=== PATIENT | male | born 1950 | race Caucasian/White ===

== ENCOUNTER → 2023-12-14 08:06 | Outpatient (REF) | payer MEDICARE, OTHER, SELFPAY | LOC: DHCBS MAIN 08:06 | PROVIDERS: ATTENDING PHYSICIAN Internal Medicine Cardiovascular Disease; FAMILY PHYSICIAN Nurse Practitioner Adult Health | DX: Z98.890 Other specified postprocedural states (principal) | CPT/HCPCS: 93306 ==

== ENCOUNTER → 2023-12-15 12:05 | Outpatient (REF) | payer MEDICARE, OTHER, SELFPAY | LOC: RAD 12:05 | PROVIDERS: ATTENDING PHYSICIAN Nurse Practitioner Adult Health | DX: M79.672 Pain in left foot (principal) | CPT/HCPCS: 73600; 73620 ==

== ENCOUNTER → 2024-01-29 19:59 | Outpatient (REF) | payer MEDICARE, OTHER, SELFPAY | LOC: MRI 19:59 | PROVIDERS: ATTENDING PHYSICIAN Podiatrist Primary Podiatric Medicine | DX: M25.572 Pain in left ankle and joints of left foot (principal); M76.62 Achilles tendinitis, left leg | CPT/HCPCS: 73723 ==

== ENCOUNTER 2024-01-30 18:01 | Outpatient (RCR) | payer MEDICARE, OTHER, SELFPAY | END 2024-01-30 23:59 | disposition home or self-care (01) | LOC: RPT 18:01 | PROVIDERS: ATTENDING PHYSICIAN Nurse Practitioner Adult Health | DX: M79.672 Pain in left foot (principal); M25.572 Pain in left ankle and joints of left foot; R26.2 Difficulty in walking, not elsewhere classified; Z73.6 Limitation of activities due to disability | CPT/HCPCS: 97110; 97140; 97161 ==

== ENCOUNTER → 2024-07-25 17:31 | Outpatient (REF) | payer MEDICARE, OTHER, SELFPAY | LOC: MRI 3T 17:31 | PROVIDERS: ATTENDING PHYSICIAN Specialist; FAMILY PHYSICIAN Nurse Practitioner Adult Health | DX: R97.20 Elevated prostate specific antigen [PSA] (principal) | CPT/HCPCS: 72197; A9575 ==

== ENCOUNTER → 2024-09-25 16:33 | Outpatient (REF) | payer MEDICARE, OTHER, SELFPAY | LOC: CLAB 16:33 | PROVIDERS: ATTENDING PHYSICIAN Specialist | DX: R97.20 Elevated prostate specific antigen [PSA] (principal) | CPT/HCPCS: 88305 ==

== ENCOUNTER 2025-04-14 00:01 | Emergency (ER) | payer MEDICARE, OTHER, SELFPAY ==
[2025-04-14 00:05] VITALS: BP 168/72
--- NOTE | 2025-04-14 01:08 | ED.GENMED ---
History of Present Illness
<Nilda REBECA Null - Last Filed: 04/14/25 05:18>
General
Chief Complaint: Abdominal Pain
Source: patient and spouse
Time Seen by Provider: 04/14/25 00:46
History of Present Illness
History of Present Illness:
Patient is a 74 y/o M with PMHx of afib, HTN, KENDELL, and mitral valve repair presents to ED with abdominal pain x 4 days. Pain is located in RLQ, LLQ without radiation, rated 6/10. Patient has not had a bowel movement in 3-4 days but did have
flatulence, which has ceased in the last day. Patient took Colace a few hours before arriving at ED in hopes to relieve constipation like symptoms. Patient has been able to continue to eat despite persistent nausea due to abominal pain.
Review of Systems
<REBECA Parra - Last Filed: 04/14/25 05:18>
Review of Systems
Allergies reviewed?: Yes
Other source history: family
Constitutional: Denies fever, fatigue or chills
Respiratory: Denies hemoptysis or trouble breathing
Cardiac: Denies chest pain or palpitations
ABD/GI: Reports abdominal pain, nausea and constipated; Denies vomiting, diarrhea or bloody stools
: Denies dysuria, frequency, difficulty voiding, urgency, bleeding or discharge
Musculoskeletal: Denies joint pain or muscle pain
Neurological: Denies dizzy, headache or weakness
Endocrine: Denies polyuria or polydipsia
Phy Exam
<REBECA Parra - Last Filed: 04/14/25 05:18>
General Physical Exam
General Presentation: well appearing
General age: appears stated age
General Skin: warm and dry
General Habitus: normal
General Mental: alert
General Hydration: appears well hydrated
Cardiovascular Exam
Cardiovascular Exam: regular rate/rhythm, no edema and no murmur
Heart Sounds: normal
Pulmonary Exam
Pulmonary Exam: lungs clear
Gastrointestinal Exam
Gastrointestinal Exam: no cva tenderness, abnormal bowel sounds, distended and no masses
Palpation: left upper quadrant: No tenderness, left lower quadrant: Moderate tenderness, right upper quadrant: No tenderness and right lower quadrant: Mild tenderness
Auscultation of Abdomen: absent
<Tima Clarke DO - Last Filed: 04/14/25 04:47>
Physical Exam
Physical Exam:
.
Course
<ST AidaPA - Last Filed: 04/14/25 05:18>
Orders/Labs/Results
Orders:
Orders
04/14/25 01:43
Complete Blood Count/With Diff Urgent
Comprehensive Metabolic Panel Urgent
Urinalysis Urgent
Date Specimen was Collected: 04/14/25
Time Specimen was Collected: 01:26
Urine Microscopic Urgent
Date Specimen was Collected: 04/14/25
Time Specimen was Collected: 01:26
04/14/25 02:13
CT Abd/pelvis W Iv Cont Urgent
Comment:
Reason For Exam: L sided and lower abd pain
04/14/25 03:27
0.9% Sodium Chloride 1000 ml [Nss] 1,000 ml IV BOLUS
Morphine Sulfate 4 mg IV NOW STA
Ondansetron Injectable [Zofran] 4 mg IV NOW STA
04/14/25 03:58
Ketorolac [Toradol] 15 mg IV NOW STA
04/14/25 04:02
HYDROmorphone [Dilaudid] 1 mg IV NOW STA
Abnormal Lab Results
04/14/25
01:43
RBC 4.57 L 10^6/uL
(4.70-6.10)
MCH 32.2 H pg
(27.0-31.0)
MPV 10.7 H fL
(7.4-10.4)
Absolute Neuts (auto) 8.5 H 10^3/uL
(1.4-6.5)
Absolute Lymphs (auto) 0.8 L 10^3/uL
(1.2-3.4)
Absolute Monos (auto) 1.0 H 10^3/uL
(0.1-0.6)
Neutrophils % 81.4 H %
(42.2-75.2)
Lymphocytes % 7.4 L %
(20.5-51.1)
Monocytes % 9.5 H %
(1.7-9.3)
Potassium 3.4 L mmol/L
(3.5-5.1)
BUN 31 H mg/dl
(9-20)
Creatinine 1.6 H mg/dL
(0.7-1.3)
Glucose 146 H mg/dl
(70-99)
Urine Ketones 1+ A
(Negative)
Urine Occult Blood 3+ A
(Negative)
Urine RBC 3-6 A /HPF
(0-2)
Urine Bacteria Few A
(Negative)
04/14/25 01:43
04/14/25 01:43
Vital Signs
Initial and Last Documented VS:
Initial Vital Signs
Temp Pulse Resp BP Pulse Ox
98.4 F 60 20 168/72 97
04/14/25 00:05 04/14/25 00:05 04/14/25 00:05 04/14/25 00:05 04/14/25 00:05
Last Documented Vital Signs
Temp Pulse Resp BP Pulse Ox
98.4 F 69 18 151/65 94
04/14/25 00:05 04/14/25 04:55 04/14/25 04:55 04/14/25 03:08 04/14/25 04:55
<Tima Clarke, DO - Last Filed: 04/14/25 04:47>
Orders/Labs/Results
Orders:
Orders
04/14/25 01:43
Complete Blood Count/With Diff Urgent
Comprehensive Metabolic Panel Urgent
Urinalysis Urgent
Date Specimen was Collected: 04/14/25
Time Specimen was Collected: :
Urine Microscopic Urgent
Date Specimen was Collected: 04/14/25
Time Specimen was Collected: :
04/14/25 02:13
CT Abd/pelvis W Iv Cont Urgent
Comment:
Reason For Exam: L sided and lower abd pain
04/14/25 03:27
0.9% Sodium Chloride 1000 ml [Nss] 1,000 ml IV BOLUS
Morphine Sulfate 4 mg IV NOW STA
Ondansetron Injectable [Zofran] 4 mg IV NOW STA
04/14/25 03:58
Ketorolac [Toradol] 15 mg IV NOW STA
04/14/25 04:02
HYDROmorphone [Dilaudid] 1 mg IV NOW STA
Abnormal Lab Results
04/14/25
01:43
RBC 4.57 L 10^6/uL
(4.70-6.10)
MCH 32.2 H pg
(27.0-31.0)
MPV 10.7 H fL
(7.4-10.4)
Absolute Neuts (auto) 8.5 H 10^3/uL
(1.4-6.5)
Absolute Lymphs (auto) 0.8 L 10^3/uL
(1.2-3.4)
Absolute Monos (auto) 1.0 H 10^3/uL
(0.1-0.6)
Neutrophils % 81.4 H %
(42.2-75.2)
Lymphocytes % 7.4 L %
(20.5-51.1)
Monocytes % 9.5 H %
(1.7-9.3)
Potassium 3.4 L mmol/L
(3.5-5.1)
BUN 31 H mg/dl
(9-20)
Creatinine 1.6 H mg/dL
(0.7-1.3)
Glucose 146 H mg/dl
(70-99)
Urine Ketones 1+ A
(Negative)
Urine Occult Blood 3+ A
(Negative)
Urine RBC 3-6 A /HPF
(0-2)
Urine Bacteria Few A
(Negative)
04/14/25 01:43
04/14/25 01:43
Vital Signs
Initial and Last Documented VS:
Initial Vital Signs
Temp Pulse Resp BP Pulse Ox
98.4 F 60 20 168/72 97
04/14/25 00:05 04/14/25 00:05 04/14/25 00:05 04/14/25 00:05 04/14/25 00:05
Last Documented Vital Signs
Temp Pulse Resp BP Pulse Ox
98.4 F 69 18 151/65 94
04/14/25 00:05 04/14/25 04:55 04/14/25 04:55 04/14/25 03:08 04/14/25 04:55
<REBECA Parra - Last Filed: 04/14/25 05:18>
MDM/Problems Addressed
Differential Diagnosis Includes:
Differential diagnosis includes but is not limited to
-Diverticulitis
-Small bowel obstruction
-constipation
-colitis
-renal colic
-nephrolithiasis
-urinary tract infection
MDM/Problems Addressed:
1. Abdominal pain x 4 days
-CBC, CMP, UA, Abdominal CT
<Nilda Hansen, STPA - Last Filed: 04/14/25 05:18>
*Pulse Oximetry
SaO2: 97
Patient hypoxic: no
*Critical Care Note
Total Time (30-74mins, 75-104mins- exclusive of procedures): Not Applicable
<Tima Clarke DO - Last Filed: 04/14/25 04:47>
*Pulse Oximetry
Oxygen Mode of Delivery: Room air
Patient hypoxic: no
*Critical Care Note
Total Time (30-74mins, 75-104mins- exclusive of procedures): Not Applicable
<Tima Clarke DO - Last Filed: 04/14/25 04:47>
Update Note
Update Note:
Note:
CHIEF COMPLAINT(S)
Abdominal pain for three days with associated nausea and feeling of bloating.
HISTORY OF PRESENT ILLNESS
The patient is a 74-year-old male presenting with abdominal pain that began approximately three days ago. Initially, the pain was localized to the right side, but subsequently, it has become more centralized around the umbilical region. The patient
describes the pain as extensive and significant. Concurrently, the patient reports nausea, but denies any fever, vomiting, or blood in the stool. There is an absence of previous similar episodes, except for a history of kidney stones with
unrecallable pain localization. No recent surgeries have been conducted on the abdomen. Pain is exacerbated by palpation, particularly in the left upper and lower quadrants. The patient reports a lack of bowel movement and flatulence.
PAST MEDICAL AND SURGICAL HISTORY
History of kidney stones several years ago.
ADDITIONAL HISTORY OBTAINED FROM SOURCES OTHER THAN THE PATIENT
According to EMS, upon examination, the patients abdomen is distended and tympanic on percussion. The examination revealed mild tenderness in the left upper and lower quadrants. The remainder of the physical examination was unremarkable, with
regular heart rhythm and no abnormalities detected.
SOCIAL DETERMINANTS AFFECTING HEALTH
The patient has no reported allergies to medications.
MEDICATIONS
Not mentioned.
REVIEW OF SYSTEMS
- Gastrointestinal: Nausea, abdominal pain, feeling of bloating, and tenderness on palpation. No vomiting, diarrhea, or blood in the stool reported. No recent flatulence or bowel movements.
PHYSICAL EXAM
- General: Alert, no acute distress.
- Abdomen: Mild tenderness in the left upper and left lower quadrants, distended abdomen, tympanic on percussion.
- All other systems including Skin, Head, Eye, Ears, Nose, Mouth, Throat, Cardiovascular, Respiratory, Back, Musculoskeletal, Neurological, and Psychiatric appeared normal or unremarkable during the exam.
PROBLEM LIST
- Acute: Abdominal pain with associated nausea and distention.
- Chronic: History of kidney stones.
PLAN
The patient will undergo abdominal imaging to rule out colitis, bowel obstruction, or other acute abdominal conditions. Laboratory tests will be conducted to evaluate liver and kidney function and blood counts. Given the potential for constipation,
a targeted bowel management plan will be determined based on imaging findings. Pain management will be considered using non-narcotic options to avoid exacerbating constipating symptoms.
DIFFERENTIAL DIAGNOSIS
The Differential Diagnosis includes, in no particular order and is not limited to:
1. Constipation
2. Bowel obstruction
3. Colitis
4. Diverticulitis
5. Renal colic (due to history of kidney stones)
6. Gastroenteritis
7. Mesenteric ischemia
8. Pancreatitis
9. Aortic aneurysm
10. Inflammatory bowel disease
CARE-UPDATE
04/14/25 - 04:03
- CT scan shows a 6-millimeter stone.
- Patient continues to experience persistent pain.
- Decided to hold off on Toradol due to current use of Eliquis and renal insufficiency.
- PRN medication adjustment or additional analgesia may be considered in light of the persistent pain.
Disposition:
SUMMARY OF ENCOUNTER
The patient, a 74-year-old male, presented to the emergency department with a three-day history of abdominal pain, nausea, and bloating. Initial pain was localized to the right side but became centralized around the umbilical region. The examination
showed a distended abdomen with mild tenderness in the left upper and lower quadrants. The patient had no fever, vomiting, or blood in the stool. Lab results revealed mild hypokalemia and mild renal insufficiency. Liver function tests were normal,
and urinalysis showed blood but no evidence of urinary tract infection. Imaging demonstrated a 6-millimeter kidney stone, contributing to the diagnosis of renal colic. Pain management was considered with non-steroidal anti-inflammatory drugs, but
Toradol was withheld due to the patients use of anticoagulant Eliquis and renal insufficiency.
DISPOSITION
Patient stable for discharge, to follow up with urology as an outpatient.
ASSESSMENT
The patients symptoms and imaging are consistent with renal colic secondary to the presence of a 6-millimeter kidney stone. Additionally, there are findings of mild hypokalemia and mild renal insufficiency.
PLAN
The patient will be discharged with prescriptions for narcotic pain medication and tamsulosin (Flomax) for symptomatic treatment of renal colic. The patient is advised to follow up with a urologist as an outpatient for further management of the
kidney stones.
INDEPENDENT REVIEW OF LABS AND INTERPRETATION OF TESTS
My independent review of CBC indicates normal white blood cell count, normal hemoglobin, and normal platelet count.
My independent review of BMP indicates mild hypokalemia at 3.4 mmol/L and mild renal insufficiency with a creatinine level of 1.6 mg/dL, unspecified baseline.
My independent review of liver function tests shows normal results.
My independent review of urinalysis shows the presence of blood but no evidence of a urinary tract infection.
MEDICATION RECONCILIATION
Prescriptions provided for narcotic pain medication and tamsulosin (Flomax) for management of symptoms related to renal colic.
MEDICAL DECISION MAKING
Chronic conditions affecting care include a history of kidney stones. Differential diagnosis included constipation, bowel obstruction, colitis, diverticulitis, renal colic, gastroenteritis, mesenteric ischemia, pancreatitis, aortic aneurysm, and
inflammatory bowel disease.
-Data:
Category 1
Tests and documents: CBC, BMP, liver function tests, urinalysis reviewed.
Category 2
Clinical information was obtained from an independent historian: Information from EMS.
-Risk:
Consideration of Admission/Observation: Escalation of care including admission/observation was considered given the complexity and risk of the patients presenting complaint, exam findings, and/or their underlying comorbidities. However, ultimately I
feel the patient is safe for outpatient management with close follow-up. Reasoning: Work-up is reassuring, does not reveal any acute life/organ threatening processes, patients symptoms well-controlled upon reevaluation, reexamination is reassuring,
vitals are stable, patient agreeable with discharge, reliable for follow-up.
DIAGNOSIS
Renal colic (N20.0)
Creatinine (1.6 mg/dL) abnormality (R94.4)
Hypokalemia (E87.6)
ED Attending Note
<REBECA Parra - Last Filed: 04/14/25 05:18>
-
Portions of this chart may have been created with voice recognition software.� Occasional wrong word or��sound alike� substitutions may have occurred due to the inherent limitations of voice recognition software.
Discharge Plan
Departure
Patient with high blood pressure during this ER visit?: Yes
Discharge Problem:
Nephrolithiasis
Instructions: Kidney Stones (DC), BLOOD PRESSURE
Prescriptions:
New
tamsulosin [Flomax] 0.4 mg capsule
0.4 mg PO HS Qty: 20 0RF
hydrocodone-acetaminophen 5-325 mg tablet
2 tab PO Q6H PRN (Reason: Pain) Qty: 14 0RF
No Action
multivitamin Tablet
1 tab PO DAILY
atorvastatin 10 mg Tablet
10 mg PO DAILY
potassium 99 mg Tablet
99 mg PO DAILY
hydrochlorothiazide 25 mg Tablet
25 mg PO DAILY
lisinopril 40 mg Tablet
40 mg PO DAILY
acetaminophen [Tylenol Extra Strength] 500 mg Capsule
500 mg PO PRN PRN (Reason: pain)
Patient Comments:
weeks since last dose
Eliquis 5 mg Tablet
5 mg PO BID
Referrals:
Adán Watson MD [Active, Urology]
UNKNOWN - PT DOES,NOT KNOW [Family Provider]
Activity Restrictions/Additional Instructions:
Please drink plenty of fluids and rest. Use pain control as needed and do not operate machinery or drive vehicles while on narcotic pain medications. Please see urology in the next 3 to 5 days for follow-up and reevaluation. Return immediately
for fevers, intractable pain, tractable vomiting or any other concerns.
Interventions
Interventions:
*Risk Screen - Suicide Last Done: 04/14/25 00:05
*General Assessment Last Done: 04/14/25 01:39
*Neglect/Abuse Screening Last Done: 04/14/25 00:05
*ED- Fall Risk Assessment Last Done: 04/14/25 01:39
*ED COVID-19 Vaccine History Last Done: 04/14/25 01:39
YP-Csphbg-Xqakxwoxlp Assessment Last Done: 04/14/25 01:52
Discharge Date and Time
Print Language: THAI
[2025-04-14 01:55] LABS: Urine Character Clear (Clear)
[2025-04-14 01:56] LABS: Hematocrit 41.5 % (39.0-52.0); Hemoglobin 14.7 g/dL (13.0-18.0); Mean Corp Hgb Conc. 35.4 g/dL (33.0-37.0); Mean Corpuscular Volume 90.8 fL (80.0-94.0); Nucleated Red Blood Cells % 0 % (-); Platelet Count 143 10^3/uL (130-400); Red Cell Dist. Width 13.5 % (11.5-14.5)
[2025-04-14 02:08] LABS: ALT (SGPT) 23 U/L (0-50); AST (SGOT) 23 U/L (17-59); Albumin 4.1 g/dl (3.5-5.0); Alkaline Phosphatase 76 U/L (38-126); Blood Urea Nitrogen 31 mg/dl (9-20); Calcium 9.5 mg/dl (8.4-10.2); Carbon Dioxide 26 mmol/L (22-30); Chloride 104 mmol/L (98-107); Glucose 146 mg/dl (70-99); Potassium 3.4 mmol/L (3.5-5.1); Sodium 137 mmol/L (135-145); Total Protein 6.6 g/dl (6.3-8.2); eGFR 44.93
[2025-04-14 02:11] LABS: Urine White Cell 0-2 /HPF (0-5)
[2025-04-14 03:08] VITALS: BP 151/65
[2025-04-14] MEDS: ZOFRAN 4 MG IV (03:30)
[2025-04-14] MEDS: MORPHINE SULFATE 4 MG IV (03:30)
[2025-04-14] MEDS: NSS 1000 IV (03:33)
[2025-04-14] MEDS: DILAUDID 1 MG IV (04:08)
[2025-04-14 05:59] VITALS: BP 129/67
== END 2025-04-14 06:08 | disposition home or self-care (01) ==
LOC: EMR 00:01
PROVIDERS: EMERGENCY PHYSICIAN Emergency Medicine
DX: N13.2 Hydronephrosis with renal and ureteral calculous obstruction (principal); E87.6 Hypokalemia; I48.91 Unspecified atrial fibrillation; I10 Essential (primary) hypertension; G47.33 Obstructive sleep apnea (adult) (pediatric); N28.9 Disorder of kidney and ureter, unspecified; Z79.01 Long term (current) use of anticoagulants; Z87.442 Personal history of urinary calculi
CPT/HCPCS: 99284; 96374; 96375 ×3; 74177; 80053; 81003; 81015; 85025; Q9967

== ENCOUNTER → 2025-04-22 15:16 | Outpatient (REF) | payer MEDICARE, OTHER, SELFPAY | LOC: RAD 15:16 | PROVIDERS: ATTENDING PHYSICIAN Specialist; FAMILY PHYSICIAN Nurse Practitioner Adult Health | DX: N20.1 Calculus of ureter (principal) | CPT/HCPCS: 74018 ==

== ENCOUNTER → 2025-05-05 10:00 | Outpatient (REF) | payer MEDICARE, OTHER, SELFPAY | LOC: RAD 10:00 | PROVIDERS: ATTENDING PHYSICIAN Specialist; FAMILY PHYSICIAN Nurse Practitioner Adult Health | DX: R97.20 Elevated prostate specific antigen [PSA] (principal); N20.1 Calculus of ureter | CPT/HCPCS: 74018 ==

== ENCOUNTER → 2025-05-19 07:18 | Outpatient (REF) | payer MEDICARE, OTHER, SELFPAY | LOC: RAD 07:18 | PROVIDERS: ATTENDING PHYSICIAN Specialist | DX: N20.1 Calculus of ureter (principal) | CPT/HCPCS: 74018 ==

== ENCOUNTER 2025-05-20 06:20 | Day surgery (SDC) | payer MEDICARE, OTHER, SELFPAY ==
--- NOTE | 2025-05-02 12:48 | PTCARENOTE ---
Abnormal K+ 3.4 collected 04/14/25 and eGFR 44.[address] Laure [address] Dr Watson office.
--- NOTE | 2025-05-02 14:12 | PTCARENOTE ---
Abnormal Potassium of 3.4 and GFR of 44.93 on 04/14/25. Dr. Spangler aware. No intervention needed.
[2025-05-20] VITALS (9 sets, daily range): BP systolic 111–148; BP diastolic 55–71; BMI 28.0
[2025-05-20] MEDS: NORMOSOL-R/PLASMALYTE-A 1000 IV (09:10)
== END 2025-05-20 13:29 | disposition home or self-care (01) ==
LOC: SDS 06:20
PROVIDERS: ATTENDING PHYSICIAN Specialist
DX: N20.1 Calculus of ureter (principal); N40.0 Benign prostatic hyperplasia without lower urinary tract symptoms
CPT/HCPCS: 52352; 74018; 76000; A4300; C1894; C2617

== ENCOUNTER → 2025-06-30 14:37 | Outpatient (REF) | payer MEDICARE, OTHER, SELFPAY | LOC: RAD 14:37 | PROVIDERS: ATTENDING PHYSICIAN Specialist; FAMILY PHYSICIAN Nurse Practitioner Adult Health | DX: N20.1 Calculus of ureter (principal) | CPT/HCPCS: 74018 ==

== ENCOUNTER 2025-07-03 06:01 | Day surgery (SDC) | payer MEDICARE, OTHER, SELFPAY ==
[2025-07-03] VITALS (7 sets, daily range): BP systolic 103–146; BP diastolic 60–73; BMI 27.7
[2025-07-03] MEDS: NORMOSOL-R/PLASMALYTE-A 1000 IV (07:07)
== END 2025-07-03 10:10 | disposition home or self-care (01) ==
LOC: SDS 06:01
PROVIDERS: ATTENDING PHYSICIAN Specialist
DX: N20.1 Calculus of ureter (principal)
CPT/HCPCS: 52356; 74018; 76000; 82365; C1894; C2617

== ENCOUNTER → 2025-08-27 14:15 | Outpatient (REF) | payer MEDICARE, OTHER, SELFPAY | LOC: DHSLP 14:15 | PROVIDERS: ATTENDING PHYSICIAN Internal Medicine Critical Care Medicine; FAMILY PHYSICIAN Nurse Practitioner Adult Health | DX: G47.33 Obstructive sleep apnea (adult) (pediatric) (principal) | CPT/HCPCS: 95800 ==